=== PATIENT | male | born 1965 | race Caucasian/White ===

== ENCOUNTER 2023-06-12 13:18 | Outpatient (CLI) | payer OTHER, SELFPAY ==
--- NOTE | 2023-06-12 13:41 | ECG_ITS ---
Measurements Intervals [place] Rate: 66 P: 20 UT: 162 QRS: 23 QRSD: 82 T: -1 QT: 379 QTc: 399 Interpretive Statements SINUS RHYTHM INCOMPLETE RIGHT BUNDLE BRANCH BLOCK CONSIDER INFERIOR INFARCT, AGE INDETERMINATE ABNORMAL ECG NO PREVIOUS ECG AVAILABLE FOR COMPARISON Electronically Signed On 06-12-2023 14:16:05 [employer] by Ricardo Agarwal D.O.
== END 2023-06-12 13:19 | disposition home or self-care (01) ==
LOC: ANHSURGERY 13:25
PROVIDERS: PCP Family Medicine; Visit Provider Plastic Surgery
DX: E78.00 Pure hypercholesterolemia, unspecified (principal); Z01.818 Encounter for other preprocedural examination; I45.10 Unspecified right bundle-branch block
CPT/HCPCS: 93005

== ENCOUNTER 2023-06-21 01:07 | Day surgery (SDC) | payer OTHER, SELFPAY ==
[2023-06-11 12:25] VITALS: BMI 28.7
--- NOTE | 2023-06-11 12:30 | PC.NURSE ---
Report to the Outpatient Waiting Room, entrance under the green pavilion located off [facility], at time 8:30 on date 06/21/23. Planned Procedure Time: 10:30. Time changes happen often and if your time is changed the preop area will call you the afternoon before. - You and your visitor will be asked to self-screen and do not enter if you have any COVID symptoms. - A mask is optional within the hospital at this time. Patients may have clear liquids (water, carbonated beverages, clear teas, apple juice) until 8 hours prior to surgery with a maximum of 20 ounces. - No food from midnight until time of surgery Take the following medications with a SIP of water the morning of surgery: NONE DO NOT STOP ANY OF YOUR OTHER PRESCRIPTION MEDICATIONS PRIOR TO SURGERY ?EXCEPT THE FOLLOWING Medications to discontinue per physician: N/A Date to take last dose: N/A Please no make-up, nail serbian, hairspray, perfume, deodorant, or body powder the day of surgery. No jewelry (including any body piercings) or valuables the day of surgery, leave them at home. Please take a shower or bath the night before, or the morning of, surgery with an antibacterial soap. Wear comfortable, loose fitting clothing. - Jewelry must be removed prior to entering the operating room. Rings and piercings that are not removed may be cut off. - The hospital will not accept responsibility for valuables. - Please leave all valuables, including medications, at home the day of surgery. If you are going home after surgery, a licensed bull driver must drive you home. - NO public transportation without another adult if you receive anesthesia. - We recommend that an adult stay with you for 24 hours following discharge. - We also recommend that you do not drive, make important decision, drink alcoholic beverages, or take any drugs that were not prescribed by your health care provider for at least 24 hours after your discharge time. Follow any additional instructions given to you from your surgeon. If you or anyone in your household have experienced Covid symptoms in the past week, please notify your surgeon or the nurse liaison at the phone number below for possible testing. Telephone instructions given to PT - QING KOHLI and asked if any additional questions and then verbalized understanding. Patient advised to call surgeon office or pre surgery nurse liaison [phone] if any additional questions.
--- NOTE | 2023-06-21 06:56 | PM.HPGS ---
History of Present Illness History of Present Illness Chief complaint: right Dupuytren's contracture Narrative: Patient seen and examined in pre-operative holding area. No interval change in medical history or symptoms. Patient recalls previous discussion of benefits and alternatives to procedure. Continues to desire to proceed with right palmar dupuytren's nodule/cord to middle and ring finger excision. Reviewed procedure, post-op expectations and risks including but not limited to bleeding, infection, injury to tendon/nerve/vessel, decreased hand function, stiffness, RSD, no change or worsening of symptoms, recurrence, incomplete excision. I discussed the possible use of assistants and their participation in the case. Patient stated understanding and signed the consent form wishing to proceed. Review of Systems Review of Systems: All systems reviewed & are unremarkable except as noted in HPI and below PMFSH Past Medical History Medical History Erectile dysfunction Pure hypercholesterolemia Surgical History Surgical History History of decompression of ulnar nerve right Status post hernia repair Family History Family History Mother Hypertension Cerebrovascular accident Family history of coronary artery disease Father Malignant neoplasm of prostate Social History Social History (Updated 04/29/23 @ 09:43 by Maryana Mercado MA) Smoking status: Never smoker Second hand tobacco smoke exposure: No Alcohol intake: current Drinks per week: 2 Substance use: never Substance use type: does not use Lack of Transportation: No Lack of Food: Never True Current Housing: I Have Housing Concerned About Future Housing: No Difficulty Paying Gas/Electric Bills: No Difficulty Paying for Meds: No Currently Unemployed: No Education: High School Diploma/GED Difficulty w/ Childcare or Family Care: No Living arrangements: with family Occupation/Education: occupation Gender identity (if verbalized by the patient): Male Sexual Orientation (if Verbalized by the Patient): Straight or Heterosexual Spiritual care concerns: No Meds Home Medications and Allergies Home Medications Medication Instructions Recorded Confirmed Type sildenafil 100 mg tablet 100 mg PO DAILY PRN sexual 08/20/22 06/11/23 Rx activity #9 tabs pravastatin 40 mg tablet 40 mg PO DAILY #90 tabs 05/27/23 06/11/23 Rx tramadol 50 mg tablet 50 mg PO Q6H PRN pain #12 tabs 06/21/23 Rx Allergies Allergy/AdvReac Type Severity Reaction Status Date / Time sulfamethizole Allergy Unknown Rash Verified 06/11/23 12:24 trimethoprim Allergy Unknown Rash Verified 06/11/23 12:24 Exam Narrative: unchanged Assessment and Plan Assessment and plan (1) Dupuytren contracture: Code(s): M72.0 - Palmar fascial fibromatosis [Dupuytren] Status: Acute Assessment and Plan: as above
--- NOTE | 2023-06-21 06:57 | W.PM.PROC2 ---
Procedure Note - Detailed Date of Procedure 06/21/23 Pre-op Diagnosis right Dupuytren's contracture Post-op Diagnosis Same Procedure Performed right palmar fasciectomy Surgeon Henrietta Roy MD Control And Recovery [employer] Zoë Sinha PA-C Anesthesia MAC Description of Procedure INFORMED CONSENT: The patient was seen and examined and marked in the pre-op area.? The patient signed the consent form. PROCEDURE IN DETAIL:The patient taken back to OR on the stretcher in supine position. Time out performed with anesthesia, surgeon and staff agreeing on patient's name site and surgery to be performed SCDs were placed on the lower extremities and inflated. A tourniquet was placed on {right/} upper extremity and antibiotics given IV After anesthesia administered sedation I injected {8}cc 1%lido and 0.5% marcaine plain at the operative site The?{right upper extremity}?was prepped and draped in sterile fashion the??{right upper extremity} was? exsanguinated with Esmarch bandage and tourniquet inflated to 250mmHg I proceeded with making a longitudinal incision over the cord/nodule on right palm proximal to ring finger through skin and dermis with a 15 blade scalpel with a luciana incision going obliquely across distal palmar crease. I sharply elevated skin flaps and identified the cord proximally and circumferentially dissected around it. I transected the cord and proceeded with anterograde dissection and excision of the cord. I irrigated with normal saline and closed with 4-0 chromic. The neurovascular bundles were identified and protected throughout the procedure Next I took my attention to the cord on right palm proximal to middle finger. I proceeded with making a longitudinal incision over the cord/nodule through skin and dermis with a 15 blade scalpel. I sharply elevated skin flaps and identified the cord proximally and circumferentially dissected around it. I transected the cord and proceeded with anterograde dissection and excision of the cord. I irrigated with normal saline and closed with 4-0 chromic. The neurovascular bundles were identified and protected throughout the procedure. A dressing of xeroform, 4x4, ji, an an sana bandage was applied after the tourniquet was let down noting the hand was warm and well perfused. The patient was then awaken from anesthesia and transferred to the recovery room in stable condition.? Complications - none EBL- 0cc Disposition - home in stable conditions Zoë Sinha PA-C was essential for positioning, retraction, closure and dressing placement [facility] Billing Surgery - Charge Forward: Surgery Billing ([id number] and [id number],[id number] same for zoë with modifier )
[2023-06-21] MEDS: LACTATED RINGERS 1,000 ML 30 ML IV CONT (08:45)
--- NOTE | 2023-06-21 09:08 | WPDANESEPPF ---
Anes - Initial Pre Proc Eval Procedure: Operation Date: 06/21/23 10:30 Proposed Procedures p Right Palmar Dupuytren's Nodule Excision - Henrietta Roy MD Date/Time: 06/21/23 09:08 Surgeon: Henrietta Roy MD Pre Op Diagnosis: right Dupuytren's contracture Patient Data Age: 57 Gender: M Height: 1.78 m Weight: 90.75 kg Allergies Allergy/AdvReac Type Severity Reaction Status Date / Time sulfamethizole Allergy Unknown Rash Verified 06/11/23 12:24 trimethoprim Allergy Unknown Rash Verified 06/11/23 12:24 Home Medications Medication Instructions Recorded Confirmed Type sildenafil 100 mg tablet 100 mg PO DAILY PRN sexual 08/20/22 06/11/23 Rx activity #9 tabs pravastatin 40 mg tablet 40 mg PO DAILY #90 tabs 05/27/23 06/11/23 Rx tramadol 50 mg tablet 50 mg PO Q6H PRN pain #12 tabs 06/21/23 Rx Patient hx anesthesia problems: none Family hx anesthesia problems: none Results Review: All pre-operative results and documents have been reviewed as part of the pre-operative evaluation. [facility] Past Medical History Medical History Erectile dysfunction Pure hypercholesterolemia Surgical History Surgical History History of decompression of ulnar nerve right Status post hernia repair Family History Family History Mother Hypertension Cerebrovascular accident Family history of coronary artery disease Father Malignant neoplasm of prostate Social History Social History Smoking status: Never smoker Second hand tobacco smoke exposure: No Alcohol intake: current Drinks per week: 2 Substance use: never Substance use type: does not use Lack of Transportation: No Lack of Food: Never True Current Housing: I Have Housing Concerned About Future Housing: No Difficulty Paying Gas/Electric Bills: No Difficulty Paying for Meds: No Currently Unemployed: No Education: High School Diploma/GED Difficulty w/ Childcare or Family Care: No Living arrangements: with family Occupation/Education: occupation Gender identity (if verbalized by the patient): Male Sexual Orientation (if Verbalized by the Patient): Straight or Heterosexual Spiritual care concerns: No Anes - Eval Final PreProcedure Day of Procedure 06/21/23 09:08 Patient weight: overweight Heart: regular rate and rhythm Lungs: clear to auscultation Airway: Mallampati scale class II Neurological: alert and oriented Last oral intake: >/= 8 hours ASA classification: II Emergent: no Anesthetic plan: proceed Anesthesia type and monitoring: general GIVS and standard monitoring Results Review: All pre-operative results and documents have been reviewed as part of the pre-operative evaluation. Informed Consent: The patient's anesthetic plan and its attendant risks and benefits were discussed with the patient/family/POA. Questions were solicited and answers provided to the satisfaction of the patient/family/POA.
[2023-06-21 09:25] VITALS: BP 141/88; PULSE 67; RESP 16; TEMP 36.2; O2SAT 100
[2023-06-21] MEDS: ceFAZolin 2 GM/D5W 50 ML 2 GM/50 ML BAG IVPB (09:48)
[2023-06-21] MEDS: KETOROLAC 30 MG/ML VIAL (*BKC) IV PUSH (10:01)
[2023-06-21] MEDS: LIDOCAINE HCL 1% LOCAL INJ 10 ML VIAL 20 ML INFILTRATE (10:03)
[2023-06-21] MEDS: BACITRACIN OINTMENT 15 GM TUBE 1 APPLIC TOPICAL (10:06)
[2023-06-21 10:14] VITALS: BP 112/82; PULSE 70; RESP 16; O2SAT 99
[2023-06-21 10:45] VITALS: BP 121/79; PULSE 60; RESP 16
[2023-06-21 11:01] VITALS: BP 126/79; PULSE 63; RESP 16
== END 2023-06-21 11:11 | disposition home or self-care (01) ==
PROVIDERS: PCP Family Medicine; Visit Provider Plastic Surgery
PROC: (CPT 26045; principal; 2023-06-21 10:30)
DX: M72.0 Palmar fascial fibromatosis [Dupuytren] (principal); E78.00 Pure hypercholesterolemia, unspecified; N52.9 Male erectile dysfunction, unspecified; Z79.891 Long term (current) use of opiate analgesic; Z82.49 Family history of ischemic heart disease and other diseases of the circulatory system; Z80.42 Family history of malignant neoplasm of prostate
CPT/HCPCS: 26123; 26125; 88305; A9270; J0690; J1100; J1885; J2250; J2405; J2704; J3010; J7120

== ENCOUNTER 2025-05-04 01:55 | Day surgery (SDC) | payer BC, SELFPAY ==
[2025-05-04 10:31] VITALS: BP 137/93; PULSE 64; RESP 18; TEMP 36.2; O2SAT 100
--- NOTE | 2025-05-04 10:59 | P.PNAN_ITS ---
Anes - Initial Pre Proc Eval Procedure: Operation Date: 05/04/25 11:00 Proposed Procedures p Screening Colonoscopy - Chong Castro MD Date/Time: 05/04/25 10:59 Surgeon: hCong Castro MD Pre Op Diagnosis: Screening Patient Data Age: 59 Gender: M Height: 1.78 m Weight: 97.6 kg Last Vital Signs Temp 97.2 F L 05/04/25 10:31 Pulse 64 05/04/25 10:31 Resp 18 05/04/25 10:31 BP 137/93 H 05/04/25 10:31 Pulse Ox 100 05/04/25 10:31 O2 Del Method Room Air 05/04/25 10:31 Allergies Allergy/AdvReac Type Severity Reaction Status Date / Time sulfamethizole Allergy Unknown Rash Verified 05/04/25 10:31 trimethoprim Allergy Unknown Rash Verified 05/04/25 10:31 Home Medications ?Medication ?Instructions ?Recorded ?Confirmed ?Type sildenafil 100 mg tablet 100 mg PO DAILY PRN sexual 0 12/21/24 04/08/25 Rx activity #9 tabs omeprazole 40 mg capsule,delayed See Rx Instructions . Route 04/05/25 04/08/25 Rx release .COMPLEX #90 caps pravastatin 40 mg tablet 40 mg PO DAILY 04/08/2503/21 History Patient hx anesthesia problems: none Family hx anesthesia problems: none Results Review: All pre-operative results and documents have been reviewed as part of the pre- operative evaluation. [facility] Past Medical History Medical History Erectile dysfunction Pure hypercholesterolemia Surgical History Surgical History History of decompression of ulnar nerve right Status post hernia repair Family History Family History Mother Hypertension Cerebrovascular accident Family history of coronary artery disease Father Malignant neoplasm of prostate Social History Social History Smoking status: Never smoker Second hand tobacco smoke exposure: No Alcohol intake: never Drinks per week: 2 Substance use: never Substance use type: does not use Lack of Transportation: No Lack of Food: Never True Current Housing: I Have Housing Concerned About Future Housing: No Difficulty Paying Gas/Electric Bills: No Difficulty Paying for Meds: No Currently Unemployed: No Education: High School Diploma/GED Difficulty w/ Childcare or Family Care: No Living arrangements: with family Occupation/Education: occupation Gender identity (if verbalized by the patient): Male Sexual Orientation (if Verbalized by the Patient): Straight or Heterosexual Spiritual care concerns: No Anes - Eval Final PreProcedure Day of Procedure 05/04/25 10:59 Patient weight: obese Lungs: normal air movement Airway: Mallampati scale class II Neurological: alert and oriented Last oral intake: >/= 8 hours ASA classification: II Emergent: no Anesthetic plan: proceed Anesthesia type and monitoring: general GIVS and standard monitoring Results Review: All pre-operative results and documents have been reviewed as part of the pre- operative evaluation. 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 Informed Consent: The patient's anesthetic plan and its attendant risks and benefits were discussed with the patient/family/POA. Questions were solicited and answers provided to the satisfaction of the patient/family/POA.
[2025-05-04] MEDS: LACTATED RINGERS 1,000 ML 150 ML IV CONT (12:18)
--- NOTE | 2025-05-04 12:18 | PM.IMHP2 ---
H&P: HPI History of Present Illness Date/Time: 05/04/25 12:18 Chief Complaint: Screening colonoscopy Narrative: This is the patient's 2nd screening colonoscopy. There are no GI symptoms and there is no family history of colorectal cancer. Review of Systems Review of Systems: All systems reviewed & are unremarkable except as noted in HPI and below PMFSH Past Medical History Medical History Erectile dysfunction Pure hypercholesterolemia Surgical History Surgical History History of decompression of ulnar nerve right Status post hernia repair Family History Family History Mother Hypertension Cerebrovascular accident Family history of coronary artery disease Father Malignant neoplasm of prostate Social History Social History Smoking status: Never smoker Second hand tobacco smoke exposure: No Alcohol intake: never Drinks per week: 2 Substance use: never Substance use type: does not use Lack of Transportation: No Lack of Food: Never True Current Housing: I Have Housing Concerned About Future Housing: No Difficulty Paying Gas/Electric Bills: No Difficulty Paying for Meds: No Currently Unemployed: No Education: High School Diploma/GED Difficulty w/ Childcare or Family Care: No Living arrangements: with family Occupation/Education: occupation Gender identity (if verbalized by the patient): Male Sexual Orientation (if Verbalized by the Patient): Straight or Heterosexual Spiritual care concerns: No Meds Home Medications and Allergies Home Medications ?Medication ?Instructions ?Recorded ?Confirmed ?Type sildenafil 100 mg tablet 100 mg PO DAILY PRN sexual 12/21/24 04/08/25 Rx activity #9 tabs omeprazole 40 mg capsule,delayed See Rx Instructions .Route 04/05/25 04/08/25 Rx release .COMPLEX #90 caps pravastatin 40 mg tablet 40 mg PO DAILY 04/08/25 04/08/25 History Allergies Allergy/AdvReac Type Severity Reaction Status Date / Time sulfamethizole Allergy Unknown Rash Verified 05/04/25 10:31 trimethoprim Allergy Unknown Rash Verified 05/04/25 10:31 Vital Signs Vital Signs - 24 hr 05/04/25 10:31 Temperature 97.2 F L Pulse Rate 64 Respiratory Rate 18 Blood Pressure 137/93 H Pulse Oximetry 100 Oxygen Delivery Room Air Exam Const: General: cooperative and healthy appearing Resp: Effort & Inspection: normal respiratory effort and able to speak in complete sentences Auscultation: clear to auscultation bilaterally Cardio: Rate: regular rate Rhythm: regular rhythm GI: Inspection: normal to inspection GI Palp: No No hepatosplenomegaly present Auscultation: normal bowel sounds Rectal Exam: deferred Skin: General skin exam: normal color Psych: Appearance: grossly normal Mental Status: mental status grossly normal Assessment and Plan Assessment and plan (1) Encounter for screening colonoscopy: Code(s): Z12.11 - Encounter for screening for malignant neoplasm of colon Status: Acute Assessment and Plan: The patient is deemed a good candidate for the procedure. Consent signed. Will proceed. Prior Studies I have reviewed the following patient records and this information was taken into consideration when formulating the assessment and plan.: previous labs, previous ER visits, previous hospitalizations and previous clinic visits
[2025-05-04 12:40] VITALS: BP 122/83; PULSE 72; RESP 25; O2SAT 100
[2025-05-04 12:50] VITALS: BP 137/100; PULSE 68; RESP 22; O2SAT 100
[2025-05-04 13:00] VITALS: BP 140/97; PULSE 65; RESP 20; O2SAT 100
== END 2025-05-04 13:08 | disposition home or self-care (01) ==
PROVIDERS: PCP Family Medicine; Referring Provider Physician Assistant; Visit Provider Internal Medicine Gastroenterology
PROC: 0DJD8ZZ Inspection of Lower Intestinal Tract, Via Natural or Artificial Opening Endoscopic (ICD-10-PCS; CPT 45378; principal; 2025-05-04 11:00)
DX: Z12.11 Encounter for screening for malignant neoplasm of colon (principal); K57.30 Diverticulosis of large intestine without perforation or abscess without bleeding; E66.9 Obesity, unspecified; Z68.30 Body mass index [BMI] 30.0-30.9, adult
CPT/HCPCS: 45378; J2003; J2704; J7120